=== PATIENT | female | born 2005 | race Caucasian/White ===

== ENCOUNTER 2024-01-07 06:25 | Inpatient (IN) ==
[2024-01-07] MEDS ORDERED: NUBAIN INJ 20 MG AMP IVP PRN (06:41)
[2024-01-07] MEDS ORDERED: ZOFRAN INJ 4 MG VIAL IVP PRN (06:41)
[2024-01-07] MEDS ORDERED: REGLAN INJ 10 MG VIAL IVP PRN (06:41)
[2024-01-07] MEDS: D5 1/2 NS 1,000 ML 1,000 ML IV SCH (06:45)
--- NOTE | 2024-01-07 07:01 | DR.OB ---
OB QUICK NOTE Assessment/Plan (1) Elective induction of labor planned: Assessment/Plan: L&D 01/07/24 at 6:55am S-No complaint. O-Afebrile,VSS [id number] with good LTV, +accel, no decel. CTX=none CVX=2cm/50%/-1/VTX AROM with clear fluid. IUPC and FSE placed. A-IUP at 39 4/7 weeks for induction P-Begin pitocin induction Anticipate
[2024-01-07] MEDS: OXYTOCIN 20 UNIT/1,000 ML-NS 20 UNIT/1,000 ML PLAST..BAG IV PRN (07:15)
[2024-01-07 07:22] LABS: BASOPHILS % (AUTO) 0.3 % (0.2-1.0); EOSINOPHILS # (AUTO) 0.1 x10^3/uL (0.0-0.2); EOSINOPHILS % (AUTO) 0.7 % (0.9-2.9); HEMATOCRIT 31.8 % (36.0-47.0); HEMOGLOBIN 10.8 g/dL (12.0-16.0); LYMPHOCYTES # (AUTO) 2.4 X10^3/uL (1.3-2.9); MEAN CORPUSCULAR HGB CONC 34.1 g/dL (33.0-35.0); MEAN CORPUSCULAR VOLUME 90.9 fL (80.0-100.0); MEAN PLATELET VOLUME 8.8 fL (7.4-11.0); MONOCYTES # (AUTO) 1.3 x10^3/uL (0.3-0.8); MONOCYTES % (AUTO) 9.4 % (0.0-13.0); NEUTROPHILS # (AUTO) 10.1 x10^3/uL (2.2-4.8); NEUTROPHILS % (AUTO) 72.6 % (42.0-75.0); PLATELET COUNT 234 X10^3/uL (150.0-450.0); RED CELL DISTRIBUTION WIDTH 12.8 % (11.6-16.5); WHITE BLOOD COUNT 13.8 X10^3/uL (3.6-10.0)
[2024-01-07 07:24] LABS: BLOOD UREA NITROGEN 11 mg/dL (7-18); CALCIUM 8.8 mg/dL (8.5-10.1); CARBON DIOXIDE 23.9 mmol/L (21-32); CHLORIDE 101 mmol/L (98-107); COR NA(FOR HYPERGLY) 135 mmol/L (136-145); CREATININE 0.58 mg/dL (0.55-1.02); GLUCOSE 113 mg/dL (65-99); POTASSIUM 3.6 mmol/L (3.5-5.1); SODIUM 135 mmol/L (136-145); eGFR NON BLACK RACES > 60 (>60)
[2024-01-07 07:26] LABS: BILIRUBIN,URINE NEGATIVE (NEGATIVE); BLOOD/HEMOGLOBIN,URINE NEGATIVE (NEGATIVE); GLUCOSE, URINE NEGATIVE (NEGATIVE); KETONES,URINE NEGATIVE (NEGATIVE); LEUKOCYTE ESTERASE ,URINE 3+ (NEGATIVE); NITRITES,URINE NEGATIVE (NEGATIVE); PROTEIN,URINE NEGATIVE (NEGATIVE); UROBILINOGEN,URINE NORMAL (NORMAL)
[2024-01-07] MEDS: D5 1/2 NS 1,000 ML 1,000 ML IV ONE ×2 (07:31→19:09)
[2024-01-07] MEDS: PITOCIN ONE (07:31)
[2024-01-07 07:41] LABS: APPEARANCE,URINE CLEAR (CLEAR); COLOR,URINE YELLOW (YELLOW)
[2024-01-07 07:42] LABS: BACTERIA,URINE TRACE /HPF (NEGATIVE); RBC,URINE 0-2 /HPF (0-3); SQUAMOUS EPITHELIAL CELL,UR MODERATE /HPF (NEGATIVE)
[2024-01-07] MEDS: LR 1,000 ML IV 1,000 ML IV ONE (09:41)
[2024-01-07] MEDS: FENTANYL VIAL INJ 100 mcg ONE (09:57)
[2024-01-07] MEDS: NAROPIN EPIDURAL 0.2% 100 ML ONE (10:18)
--- NOTE | 2024-01-07 12:17 | DR.OB ---
OB QUICK NOTE Assessment/Plan (1) Elective induction of labor planned: Assessment/Plan: L&D 01/07/24 at 12:15pm Pitocin=20mu/min. S-No complaint. s/p epidural. O-Afebrile,VSS [id number] with good LTV, +accel, no decel. CTX=q 1 1/2 to 2 min., about 45-50mmHg CVX=4cm/50%/-1/VTX A-IUP at 39 4/7 weeks for induction P-Cont. pitocin induction Anticipate
[2024-01-07] MEDS: PITOCIN IVP ONE (18:03)
--- NOTE | 2024-01-07 18:12 | DR.OB ---
OB QUICK NOTE Assessment/Plan (1) Elective induction of labor planned: Assessment/Plan: Delivery Note [employer] 01/07/24 at 6:00pm Patient complete and pushing. Head delivered over intact perineum. No nuchal cord. Nose and mouth bulb suctioned. Body delivered over intact perineum. Right hand compound presentation noted. Cord clamped x 2 and cut. Infant handed to attendant. Cord sent for gases. Placenta delivered spontaneously / intact / 3 vessel cord. No CVX / vaginal / perineal tears noted. Viable female delivered by , VTX/OA, wt=7'9" and 8/9, stable to NBN. Mother stable to RR. EFX=144oj.
[2024-01-07] MEDS ORDERED: MILK OF MAGNESIA PO PRN (19:06)
[2024-01-07] MEDS ORDERED: MOTRIN TAB 800 MG PO PRN (19:06)
[2024-01-07] MEDS ORDERED: AMBIEN PO PRN (19:06)
[2024-01-07] MEDS ORDERED: DERMOPLAST PAIN RELIEF SPRAY TOP PRN (19:06)
[2024-01-07] MEDS: MOTRIN TAB 800 MG PO PRN (20:38)
[2024-01-08] MEDS: OXYTOCIN 20 UNIT/1,000 ML-NS 20 UNIT/1,000 ML PLAST..BAG IV SCH (01:13)
[2024-01-08 05:24] LABS: HEMATOCRIT 32.6 % (36.0-47.0); HEMOGLOBIN 11.1 g/dL (12.0-16.0)
[2024-01-08] MEDS: PRENATAL PLUS PO SCH (08:31)
[2024-01-08 08:36] VITALS: RESP 18
[2024-01-08] MEDS: BETADINE SOLN ONE (10:27)
[2024-01-08 16:41] VITALS: BP 117/65; PULSE 91; TEMP 98; O2SAT 98
[2024-01-08] MEDS: ADACEL or BOOSTRIX TDaP VACCINE IM ONE ×2 (18:55→19:18)
== END 2024-01-08 19:40 | disposition home or self-care (01) | DRG 806 ==
LOC: LD 06:25 → MED/SURG 19:46
PROVIDERS: ADMIT Specialist; ATTEND Specialist